=== PATIENT | female | born 1950 | race Caucasian/White ===

== ENCOUNTER → 2021-02-07 | Outpatient (CLI) | payer MEDICARE, BC ==
--- NOTE | 2021-02-08 09:51 | MR ---
EXAMINATION TYPE: MR lumbar spine wo con DATE OF EXAM: 02/07/2021 COMPARISON: Lumbar spine x-ray February 19, 2017 HISTORY: Low back pain for 7 years that radiates down both legs. TECHNIQUE: Multiplanar, multisequence imaging of the lumbar spine is performed without IV contrast. FINDINGS: Sagittal images of the lumbar spine show vertebral body heights to remain satisfactory. Sta ble grade 1 anterolisthesis L4 on L5. Multilevel disc desiccation. Moderate to advanced disc space na rrowing L4-L5 and L5-S1 levels redemonstrated. Moderate disc space narrowing and spurring T12-L1 leve l redemonstrated with slight grade 1 retrolisthesis of T12 on L1. Heterogeneous Modic type II endplat e changes L5-S1 level. The conus medullaris is normal in position and signal ending inferior L1 leve l. There is 9 mm Tarlov cyst posterior S3 level sagittal image 10 Axial images at T12-L1 level shows spondylolisthesis with mild broad disc bulge mildly effacing anter ior thecal sac. Patent bilateral neural foramina. Axial images at the L1-L2 level show mild facet arthropathy bilaterally. Axial images at L2-L3 level show mild broad disc bulge with left lateral disc protrusion component an d mild facet arthropathy and ligamentum flavum hypertrophy. There is mild effacement of the anterior and posterior lateral thecal sac. The bilateral neural foramina are patent. Axial images at the L3-L4 level show [id number] facet arthropathy and ligamentum flavum hypertr ophy. There is [id number] broad disc bulge. There is minimal effacement of the anterior thecal sac. There is mild bilateral anterior inferior neural foraminal narrowing. Axial images at the L4-L5 levels and moderate facet arthropathy bilaterally. There is spondylolisthes is with broad-based posterior disc protrusion mildly effacing anterior thecal sac, there is moderate left-sided anterior inferior neural foraminal narrowing. There is mild right-sided narrowing seen. En croachment along the inferior margin left L4 nerve seen sagittal image 4 and axial image 11 Axial images at the L5-S1 level shows mild to moderate right greater than left facet arthropathy. The re is mild broad disc bulge. Spinal canal is preserved. Mild bilateral inferior neural foraminal narr owing noted. Prominence of the retroperitoneal fat is thought present. IMPRESSION: Spondylolisthesis L4-L5 level. Multilevel fairly mild to moderate degenerative changes gr eatest at L4-L5 level as detailed above.
== END | disposition home or self-care (01) ==
LOC: RADMRIMAIN 15:57
PROVIDERS: ATTEND Internal Medicine
DX: M43.16 Spondylolisthesis, lumbar region (principal)
CPT/HCPCS: 72148